=== PATIENT | male | born 1960 | race Caucasian/White ===

== ENCOUNTER 2018-03-11 12:46 | Emergency (ER) | payer OTHER ==
[~2018-03-11] VITALS: Ht 177.8 cm; Wt 81.6 kg
[2018-03-11 13:02] VITALS: BP 139/87
[2018-03-11] MEDS ORDERED: GLYCERIN ADULT RECTAL SUPP PR ONE (15:00)
[2018-03-11] MEDS ORDERED: LACTULOSE 20Gm/30ML SOLN PO ONE (15:00)
== END 2018-03-11 15:50 | disposition home or self-care (01) ==
LOC: ER 12:46
DX: K64.4 Residual hemorrhoidal skin tags (principal); K21.9 Gastro-esophageal reflux disease without esophagitis; E07.9 Disorder of thyroid, unspecified
CPT/HCPCS: 74018

== ENCOUNTER 2018-07-05 17:16 | Emergency (ER) | payer OTHER ==
[~2018-07-05] VITALS: Ht 177.8 cm; Wt 80.7 kg
[~2018-07-05 17:16] MED LIST: ATOR10TA PO; LEVO112T4 PO; LEVO125T7 PO; LISI-646 PO; OMEP20TA PO
[2018-07-05 18:26] LABS: Albumin 2.4 g/dL (3.4-5.0); Calcium 7.9 mg/dL (8.5-10.1); Potassium 4.6 mmol/L (3.5-5.1)
[2018-07-05 18:30] LABS: BUN/Creatinine Ratio 12.5; Bilirubin, Total 2.6 mg/dL (0.2-1.0); Total Protein 6.6 g/dL (6.4-8.2)
[2018-07-05 18:35] LABS: Basophils # (auto) 0.1 uL; Basophils % (auto) 0.5 % (0.0-2.0); Eosinophils # (auto) 0.1 uL; Eosinophils % (auto) 0.7 % (0.0-7.0); Hemoglobin 12.4 g/dL (13.5-17.5); Lymphocytes # (auto) 1.3 uL; Lymphocytes % (auto) 11.3 % (10.0-50.0); Mean Corpuscular Hemoglobin 30.1 pg (28.0-32.0); Mean Corpuscular Hgb Conc. 32.5 g/dL (32.0-36.0); Mean Corpuscular Volume 92.4 fL (80.0-100.0); Monocytes # (auto) 0.8 uL; Monocytes % (auto) 6.8 % (0.0-12.0); Neutrophils # (auto) 9.2 uL; Neutrophils % (auto) 80.7 % (37.0-80.0); Platelet Count (auto) 428 10^3/uL (140-450); Red Blood Cells 4.12 10^6/uL (4.5-5.90); Red Cell Distribution Width 15.2 % (11.8-14.3); White Blood Cell 11.4 10^3/uL (4.4-10.8)
[2018-07-05] MEDS ORDERED: FUROSEMIDE 20 MG/2 ML VIAL IV ONE ×2 (21:45→22:15)
[2018-07-05] MEDS ORDERED: SODIUM CHLORIDE 0.9% 1,000 ML IV ONE (22:15)
[2018-07-05 22:16] LABS: Urine Bacteria NONE SEEN /hpf (None Seen); Urine Blood Negative /uL (Negative); Urine Mucus FEW (None Seen); Urine Specific Gravity 1.021 (1.001-1.035); Urine WBC 2 /hpf (0 - 3)
[2018-07-06 01:21] VITALS: BP 143/90
== END 2018-07-06 01:39 | disposition short-term general hospital (02) ==
LOC: ER 17:21
DX: K85.92 Acute pancreatitis with infected necrosis, unspecified (principal); K86.3 Pseudocyst of pancreas; D72.829 Elevated white blood cell count, unspecified; E11.65 Type 2 diabetes mellitus with hyperglycemia; K21.9 Gastro-esophageal reflux disease without esophagitis; E07.9 Disorder of thyroid, unspecified; I10 Essential (primary) hypertension
CPT/HCPCS: 36415; 71046; 74176; 80053; 81001; 82150; 82962; 83690; 83880; 84484; 85025; 85379; 93005; 96361; 96374; 99285; J1940; J7030